=== PATIENT | male | born 1960 | race Caucasian/White ===

== ENCOUNTER 2022-10-18 00:18 | Day surgery (SDC) | payer OTHER, SELFPAY ==
[2022-10-03 14:21] VITALS: BMI 33.8
[2022-10-18 07:20] VITALS: BP 142/84; PULSE 78; RESP 16; TEMP 36.6; O2SAT 97
[2022-10-18] MEDS: LACTATED RINGERS 1,000 ML 150 ML IV CONT (07:31)
--- NOTE | 2022-10-18 07:51 | PM.HPGS ---
History of Present Illness History of Present Illness Consent: Risks, benefits, and alternatives have been discussed and questions answered. Patient agrees to proceed with procedure. Chief complaint: neoplasm screening Narrative: Billy Gilbert is a 62 year old male Presents for screening colonoscopy. Patient's current weight appetite and bowel movements are normal. Patient denies abdominal pain. He has had no bleeding. Family history is non contribute patient had previous colonoscopy with evidence for colon polyps in 2015. Family history is significant that his brother has had colon polyps. Review of Systems Review of Systems: Review of systems noncontributory. 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 H/O vasectomy (~1997) History of esophageal dilatation 2013 Social History Social History Smoking status: Never smoker Second hand tobacco smoke exposure: No Alcohol intake: current Substance use: never Substance use type: does not use Living arrangements: alone Additional living arrangements comments: Occupation/Education: retired Gender identity (if verbalized by the patient): Male Sexual Orientation (if Verbalized by the Patient): Straight or Heterosexual Meds Home Medications and Allergies Home Medications Medication Instructions Recorded Confirmed Type dietary supplement 1 cap PO .COMPLEX 10/12/20 10/18/22 History pjvcgtqs-ernmqepk-nynqb acid 400 1 tablet PO .COMPLEX 10/12/20 10/18/22 History mcg-vit K 20 mcg-lycop 300 mcg tablet (One-A-Day Men's Multivitamin) loratadine 10 mg tablet (Claritin) 10 mg PO DAILY PRN allergy symptoms 11/02/20 10/18/22 History atorvastatin 10 mg tablet (Lipitor) 10 mg PO QHS #90 tabs 05/24/21 10/18/22 Rx albuterol sulfate 90 mcg/actuation 2 puff inhalation Q4H PRN 03/28/22 10/18/22 Rx aerosol inhaler shortness of breath or wheezing #8.5 grams cholecalciferol (vitamin D3) 50 50 mcg PO DAILY 10/03/22 10/18/22 History mcg (2,000 unit) tablet (Vitamin D3) krill 1,000 mg-omega-3 170 mg-dha 1 cap PO DAILY 10/03/22 10/18/22 History 50 mg-epa 80 om-qrlapo-abasn capsule (krill oil) Allergies Allergy/AdvReac Type Severity Reaction Status Date / Time No Known Allergies Allergy Verified 10/18/22 07:14 Vital Signs Vital Signs - 24 hr 10/18/22 07:20 Temperature 97.8 F Pulse Rate 78 Respiratory Rate 16 Blood Pressure 142/84 H Pulse Oximetry 97 Oxygen Delivery Room Air Exam Narrative: Physical exam reveals patient to be alert. Vital signs stable. HEENT exam is unremarkable. Patient is anicteric. Lungs are clear to auscultation and percussion. Heart is without murmur or extra sounds. Abdomen bowel sounds are present soft nontender with no organomegaly. Digital external rectal exam is normal. Assessment and Plan Assessment and plan (1) History of colon polyps: Code(s): Z86.010 - Personal history of colonic polyps Status: Acute Assessment and Plan: Patient has a prior history of colon polyps in 2014. He reports that his brother also has had colon polyps. Plan for surveillance colonoscopy now. Consider this a 5 year intervals in the future.
--- NOTE | 2022-10-18 07:56 | WPDANESEPPF ---
Anes - Initial Pre Proc Eval Procedure: Operation Date: 10/18/22 08:30 Proposed Procedures p Screening Colonoscopy - Alfred Jack MD Date/Time: 10/18/22 07:56 Surgeon: Alfred Jack MD Pre Op Diagnosis: neoplasm screening Patient Data Age: 62 Gender: M Height: 1.78 m Weight: 110 kg Last Vital Signs Temp 36.6 C 10/18/22 07:20 Pulse 78 10/18/22 07:20 Resp 16 10/18/22 07:20 BP 142/84 H 10/18/22 07:20 Pulse Ox 97 10/18/22 07:20 O2 Del Method Room Air 10/18/22 07:20 Allergies Allergy/AdvReac Type Severity Reaction Status Date / Time No Known Allergies Allergy Verified 10/18/22 07:14 Home Medications Medication Instructions Recorded Confirmed Type dietary supplement 1 cap PO .COMPLEX 10/12/20 10/18/22 History eznezyzz-ixxpxgcy-kizly acid 400 1 tablet PO .COMPLEX 10/12/20 10/18/22 History mcg-vit K 20 mcg-lycop 300 mcg tablet (One-A-Day Men's Multivitamin) loratadine 10 mg tablet (Claritin) 10 mg PO DAILY PRN allergy symptoms 11/02/20 10/18/22 History atorvastatin 10 mg tablet (Lipitor) 10 mg PO QHS #90 tabs 05/24/21 10/18/22 Rx albuterol sulfate 90 mcg/actuation 2 puff inhalation Q4H PRN 03/28/22 10/18/22 Rx aerosol inhaler shortness of breath or wheezing #8.5 grams cholecalciferol (vitamin D3) 50 50 mcg PO DAILY 10/03/22 10/18/22 History mcg (2,000 unit) tablet (Vitamin D3) krill 1,000 mg-omega-3 170 mg-dha 1 cap PO DAILY 10/03/22 10/18/22 History 50 mg-epa 80 hy-darwwi-mdkjc capsule (krill oil) Patient hx anesthesia problems: none Family hx anesthesia problems: none Results Review: All pre-operative results and documents have been reviewed as part of the pre-operative evaluation. 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 H/O vasectomy (~1997) History of esophageal dilatation 2013 Social History Social History Smoking status: Never smoker Second hand tobacco smoke exposure: No Alcohol intake: current Substance use: never Substance use type: does not use Living arrangements: alone Additional living arrangements comments: Occupation/Education: retired Gender identity (if verbalized by the patient): Male Sexual Orientation (if Verbalized by the Patient): Straight or Heterosexual Anes - Eval Final PreProcedure Day of Procedure 10/18/22 07:56 Patient weight: normal Heart: regular rate and rhythm Lungs: clear to auscultation and normal air movement Airway: Mallampati scale class II Neurological: alert and oriented Last oral intake: >/= 8 hours ASA classification: II Emergent: no Anesthetic plan: proceed Anesthesia type and monitoring: general GIVS Results Review: All pre-operative results and documents have been reviewed as part of the pre-operative evaluation. Informed Consent: The patient's anesthetic plan and its attendant risks and benefits were discussed with the patient/family/POA. Questions were solicited and answers provided to the satisfaction of the patient/family/POA.
[2022-10-18 08:45] VITALS: BP 113/69; PULSE 78; RESP 18; O2SAT 96
[2022-10-18 08:55] VITALS: BP 118/73; PULSE 72; RESP 17; O2SAT 97
[2022-10-18 09:05] VITALS: BP 130/78; PULSE 69; RESP 19; O2SAT 98
== END 2022-10-18 09:11 | disposition home or self-care (01) ==
PROVIDERS: PCP Family Medicine; Visit Provider Internal Medicine Gastroenterology
PROC: 0DJD8ZZ Inspection of Lower Intestinal Tract, Via Natural or Artificial Opening Endoscopic (ICD-10-PCS; CPT 45378; principal; 2022-10-18 08:30)
DX: Z12.11 Encounter for screening for malignant neoplasm of colon (principal); D12.3 Benign neoplasm of transverse colon; K64.8 Other hemorrhoids; K57.30 Diverticulosis of large intestine without perforation or abscess without bleeding; Z79.51 Long term (current) use of inhaled steroids; I34.1 Nonrheumatic mitral (valve) prolapse; E78.5 Hyperlipidemia, unspecified; K21.9 Gastro-esophageal reflux disease without esophagitis
CPT/HCPCS: 45385; 88305; J2704; J7120

== ENCOUNTER 2024-03-06 13:31 | Outpatient (CLI) | payer BC, SELFPAY ==
--- NOTE | 2024-03-06 13:33 | ECHO_ITS ---
Patient Info Name: Billy Gilbert Age: 63 years : 1960 Gender: Male Ht: 70 in Wt: 247 lbs BSA: 2.39 m2 HR: 75 bpm BP: 153 / 91 mmHg Heart Rhythm: Sinus Rhythm Technical Quality: Fair Exam Date: 03/06/2024 2:00 PM Exam Location: Echo Lab Patient Status: Outpatient Admit Date: 03/06/2024 Staff Ordering Physician: Heidy Medina MD Sole Filler: Alexsander Lee RDCS Attending Provider: Heidy Medina MD Exam Type: CA echo doppler color flow Study Info Indications - murmur Complete two-dimensional, color flow and Doppler transthoracic echocardiogram is performed. Summary 1. Complete two-dimensional, color flow and Doppler transthoracic echocardiogram is performed. 2. Left ventricular chamber dimension is normal. 3. Left ventricular systolic function is normal, estimated at 60-65%. 4. The left ventricular diastolic function is grade III diastolic dysfunction. 5. E/e' 13 is mildly elevated. 6. Left atrial chamber dimension is severely enlarged. 7. There is mild aortic valve sclerosis. 8. There is mild to moderate aortic valve regurgitation. 9. The mitral valve has moderate posterior prolapse. 10. There is an eccentric anterior directed mild to moderate mitral valve regurgitation. 11. There is mild tricuspid valve regurgitation. 12. Mild pulmonary hypertension, estimated pulmonary arterial systolic pressure is 41 mmHg. Left Ventricle E/e' 13 is mildly elevated. Left ventricular chamber dimension is normal. Left ventricular systolic function is normal, estimated at 60-65%. The left ventricular diastolic function is grade III diastolic dysfunction. Right Ventricle Right ventricular systolic function is normal and with normal TAPSE 3.8 cm. Right ventricular chamber dimension is normal. Left Atria Left atrial chamber dimension is severely enlarged. Right Atria Right atrial chamber dimension is normal. Aortic Valve The aortic valve is trileaflet. There is mild aortic valve sclerosis. There is no aortic valve stenosis. There is mild to moderate aortic valve regurgitation. Pulmonic Valve There is no pulmonic regurgitation. Mitral Valve The mitral valve has moderate posterior prolapse. There is an eccentric anterior directed mild to moderate mitral valve regurgitation. There is no mitral valve stenosis. Tricuspid Valve There is mild tricuspid valve regurgitation. Mild pulmonary hypertension, estimated pulmonary arterial systolic pressure is 41 mmHg. Pericardium/Pleural There is no pericardial effusion. Inferior Vena Cava Normal inferior vena cava with >50% collapse upon inspiration consistent with normal right atrial pressure, 5 mmHg. Aorta The aortic root size at the sinus of Valsalva is normal. Left Ventricular Outflow Tract Name Value Normal LVOT 2D LVOT Diameter 1.8 cm LVOT Doppler LVOT Peak Gradient 4 mmHg LVOT Mean Gradient 2 mmHg LVOT VTI 17 cm LVOT VTI/AV VTI Ratio 0.7 LVOT Stroke Volume 44 ml LVOT CO 2.8 l/min LVOT CI 1.2 l/min/m2
== END 2024-03-06 13:32 | disposition home or self-care (01) ==
LOC: ANHCARD 13:31
PROVIDERS: PCP Family Medicine; Visit Provider Family Medicine
DX: I34.1 Nonrheumatic mitral (valve) prolapse (principal); I35.8 Other nonrheumatic aortic valve disorders; I35.1 Nonrheumatic aortic (valve) insufficiency; I34.0 Nonrheumatic mitral (valve) insufficiency; I51.89 Other ill-defined heart diseases; I36.1 Nonrheumatic tricuspid (valve) insufficiency; I27.20 Pulmonary hypertension, unspecified
CPT/HCPCS: 93306